=== PATIENT | male | born 1960 | race Caucasian/White ===

== ENCOUNTER 2021-08-07 15:09 | Emergency (ER) | payer MEDICARE ==
[~2021-08-07 15:09] MED LIST: ALPRAZOLAM XR1 MG PO; AVODART0.5 MG PO; AZITHROMYCIN250 MG PO; BRETHINE5 MG PO; CEFDINIR300 MG PO; CIALIS5 MG PO; DIFLUCAN 100MG100 MG PO; DUONEB 2.5-0.5M1 AMP NEB; FLEXERIL10 MG PO; FLEXERIL5 MG PO; FLOMAX0.4 MG PO; HEPARIN 3010 UNIT/1 IV; IBUPROFEN800 MG PO; IRON325 M1 PO; K-DUR20 MEQ PO; LACTINEX1 EACH PO; LASIX20 MG PO; LEVAQUIN500 MG PO; LEVAQUIN750 MG PO; MICRO-K10 MEQ PO; MUCINEX D ER 11 EACH PO; NORCO 5-325 TA1 EACH PO; OMEPRAZOLE40 MG PO; PHENERGAN6.25 MG/5 PO; PREDNISONE 10MG10 MG PO; PREDNISONE 20MG20 MG PO; PREDNISONE5 MG PO; PRILOSEC20 MG PO; PROAIR HFA8.5 GM INH; PROMETHAZINE-P118 ML PO; REGLAN10 MG PO; SINGULAIR10 MG PO; SPIRIVA 18MCG18 MCG IN; SPIRIVA 18MCG18 MCG INH; STAHIST AD TAB1 EACH PO; SYMBICORT 16010.2 GM INH; TAMIFLU 75MG CA75 MG PO; TESSALON PERLE100 M1 PO; TESSALON PERLE100 MG PO; THEO-24300 MG PO; THEOPHYLLINE 3300 MG PO; THEOPHYLLINE400 MG PO; TOPROL XL 50 MG50 MG PO; VENTOLIN (2.5 MG/3 M INH; XANAX0.5 MG PO; ZITHROMAX500 MG PO; ZOFRAN ODT4 MG PO
[2021-08-07 16:12] LABS: BASOPHIL 0.5 % (0-2); EOSINOPHIL 4.4 % (0-5); HCT 38.1 % (42.0-52.0); MCH 30.8 pg (25.0-31.0); MCHC 31.5 g/dL (32.0-36.0); MCV 97.9 fL (78.0-100.0); MONOCYTE 9.8 % (0-12); NEUTROPHIL 67.1 % (41-80); NRBC 0; PLT 342 K/uL (150-400); RBC 3.89 M/uL (4.70-6.00); RDW 14.2 % (11.5-14.0); WBC 7.5 K/uL (4.0-10.5)
[2021-08-07 16:44] LABS: LACTIC ACID 2.4 mmol/L (0.4-1.9)
[2021-08-07 16:45] LABS: ALBUMIN 3.7 g/dL (3.4-5.0); BILIRUBIN - TOTAL 0.2 mg/dL (0.2-1.0); BUN/CREAT RATIO (CALC) 10.8 RATIO; CREATININE 0.74 mg/dL (0.67-1.17); GLOBULIN (CALCULATION) 3.8 g/dL; TOTAL PROTEIN 7.5 g/dL (6.4-8.2)
[2021-08-07 17:06] LABS: CORONAVIRUS 2019 SARS-COV-2 NEGATIVE (NEGATIVE); INFLUENZA A NAA NEGATIVE (NEGATIVE)
== END 2021-08-07 19:10 | disposition home or self-care (01) ==
LOC: FER 15:09
PROVIDERS: Emergency Medicine
DX: J44.1 Chronic obstructive pulmonary disease with (acute) exacerbation (principal); I10 Essential (primary) hypertension; Z88.0 Allergy status to penicillin; Z88.1 Allergy status to other antibiotic agents; Z20.822 Contact with and (suspected) exposure to COVID-19
CPT/HCPCS: 36415; 36600; 71046; 80053; 82803; 83605; 84145; 85025; 87040; 94640; 94664; 94762; J2930; U0002